=== PATIENT | male | born 1965 | race Caucasian/White ===

== ENCOUNTER 2020-11-28 17:15 | Emergency (ER) | payer MEDICAID ==
[~2020-11-28] VITALS: Ht 177.8 cm; Wt 109.1 kg
[2020-11-28] MEDS ORDERED: diazepam inj 5 MG/ML inj. IV ONE (18:50)
[2020-11-28] MEDS ORDERED: FURO-150 PO (18:56)
[2020-11-28] MEDS ORDERED: NICO1PAT41 TOP (18:56)
[2020-11-28] MEDS ORDERED: FERR-39 PO (18:56)
[2020-11-28] MEDS ORDERED: TRIA15CR62 TOP (18:56)
[2020-11-28] MEDS ORDERED: AMLO5TAB PO (18:56)
[2020-11-28] MEDS ORDERED: NYSPWD TP (18:56)
[2020-11-28] MEDS ORDERED: DICL100G15 TOP (18:56)
[2020-11-28] MEDS ORDERED: THIA50TA10 PO (18:56)
[2020-11-28] MEDS ORDERED: MULT-384 PO (18:56)
[2020-11-28] MEDS ORDERED: DOCU-148 PO (18:56)
[2020-11-28] MEDS ORDERED: ATOR10TA70 PO (18:56)
[2020-11-28] MEDS ORDERED: FOLI0.4T14 PO (18:56)
[2020-11-28] MEDS ORDERED: MUPI22OI30 TP (18:56)
[2020-11-28] MEDS ORDERED: BACI1PAC7 TP (18:56)
[2020-11-28] MEDS ORDERED: PANT-47 PO (18:56)
[2020-11-28] MEDS ORDERED: INSU100C10 SQ (18:56)
[2020-11-28] MEDS ORDERED: GABA300C PO (18:56)
[2020-11-28] MEDS ORDERED: INSU100V9 SQ (18:56)
[2020-11-28] MEDS ORDERED: METF-436 PO (18:56)
[2020-11-28] MEDS ORDERED: HYDR-3965 PO (18:56)
--- NOTE | 2020-11-29 00:28 | NUR ---
Patient in bed resting. RN called to check on transport ETA. Per dispatch not available to transport due to local 911 service. Updated they will call when they are available.
--- NOTE | 2020-11-29 03:10 | NUR ---
Patient resting in bed sleeping. No signs of distress.
--- NOTE | 2020-11-29 04:35 | NUR ---
Patient still resting in bed sleeping. Awaiting [facility]. [facility] contacted again.
--- NOTE | 2020-11-29 06:23 | NUR ---
received report on pt, waiting on [facility] to give ride back to [facility].
[2020-11-29 08:34] VITALS: BP 152/76
[2020-11-29] MEDS ORDERED: [UNRECOGNIZED DRUG - OTHER] IV ONE ×2 (11:11→11:12)
== END 2020-11-29 08:39 | disposition home or self-care (01) ==
LOC: ER 17:15
DX: M86.9 Osteomyelitis, unspecified (principal); Z79.899 Other long term (current) drug therapy
CPT/HCPCS: 71045; 73223; 87070; 96374; 99285; A9575; J3360; 73723

== ENCOUNTER 2020-12-08 23:57 | Emergency (ER) | payer MEDICAID ==
[~2020-12-08] VITALS: Ht 177.8 cm; Wt 100.0 kg
[~2020-12-08 23:57] MED LIST: AMLO5TAB PO; ATOR10TA70 PO; BACI1PAC7 TP; DICL100G15 TOP; DOCU-148 PO; FERR-39 PO; FOLI0.4T14 PO; FURO-150 PO; GABA300C PO; HYDR-3965 PO; INSU100C10 SQ; INSU100V9 SQ; METF-436 PO; MULT-384 PO; MUPI22OI30 TP; NICO1PAT41 TOP; NYSPWD TP; PANT-47 PO; THIA50TA10 PO; TRIA15CR62 TOP
[2020-12-09 00:07] VITALS: BP 149/108
[2020-12-09] MEDS ORDERED: acetaminophen 325mg tablet PO ONE (00:10)
--- NOTE | 2020-12-09 00:58 | NUR ---
Patient presents in wet blue sweat pant suit with one shoe on. Patient is drowsy and wants to sleep on [facility] [place]. Wound cleansed, dressed and sling placed. Clean blue sweat pants and t shirt placed, dry hospital socks placed. Patient's wet clothes placed in belongings bag with his one shoe. Taxi is called for patient to go to [facility]. Patient taken out to lobby via wheelchair by RN. Patient is strongly urged by RN to obtain assistance at the [facility] for long-term and any assistance they can offer him.
== END 2020-12-09 01:05 | disposition home or self-care (01) ==
LOC: ER 23:58
DX: T75.89XA Other specified effects of external causes, initial encounter (principal); M25.511 Pain in right shoulder; I12.9 Hypertensive chronic kidney disease with stage 1 through stage 4 chronic kidney disease, or unspecified chronic kidney disease; E11.22 Type 2 diabetes mellitus with diabetic chronic kidney disease; N18.9 Chronic kidney disease, unspecified; F15.90 Other stimulant use, unspecified, uncomplicated; Z86.19 Personal history of other infectious and parasitic diseases; Z98.890 Other specified postprocedural states; Z60.2 Problems related to living alone; Z59.0 Homelessness; Z79.4 Long term (current) use of insulin; Z79.899 Other long term (current) drug therapy; X31.XXXA Exposure to excessive natural cold, initial encounter; Y93.89 Activity, other specified; Y92.89 Other specified places as the place of occurrence of the external cause; Y99.8 Other external cause status
CPT/HCPCS: 29125; 99284

== ENCOUNTER 2020-12-10 08:09 | Emergency (ER) | payer MEDICAID ==
[~2020-12-10] VITALS: Ht 177.8 cm; Wt 120.0 kg
[2020-12-10 09:29] LABS: BASOPHILS # (AUTO) 0.1 X10'3 (0-0.2); BASOPHILS % (AUTO) 0.7 % (0-1); EOSINOPHILS # (AUTO) 0.3 X10'3 (0-0.9); EOSINOPHILS % (AUTO) 3.1 % (0-6); HEMATOCRIT 29.8 % (42.0-52.0); HEMOGLOBIN 9.6 g/dl (14.0-17.9); LYMPHOCYTES # (AUTO) 0.8 X10'3 (1.1-4.8); LYMPHOCYTES % (AUTO) 8.3 % (21-51); MEAN CORPUSCULAR HGB CONC 32.3 g/dL (33.0-36.5); MEAN CORPUSCULAR VOLUME 86.5 FL (78-98); MEAN PLATELET VOLUME 8.2 FL (7.4-10.4); MONOCYTES # (AUTO) 0.8 X10'3 (0-0.9); NEUTROPHILS # (AUTO) 7.2 X10'3 (1.8-7.7); NEUTROPHILS % (AUTO) 78.9 % (42-75); PLATELET COUNT 259 X10'3 (140-440); RED BLOOD COUNT 3.44 X10'6 (4.70-6.10); RED CELL DISTRIBUTION WIDTH 15.6 % (11.5-14.5); WHITE BLOOD COUNT 9.1 X10'3 (4.5-11.0)
[2020-12-10 09:35] LABS: ALANINE AMINOTRANSFERASE 53 U/L (12-78); ALBUMIN 1.4 G/DL (3.4-5.0); ALBUMIN/GLOBULIN RATIO 0.3 (1.1-1.5); ALKALINE PHOSPHATASE 108 IU/L (46-116); ANION GAP 6 (8-16); ASPARTATE AMINO TRANSFERASE 52 U/L (10-37); BILIRUBIN,TOTAL 0.2 MG/DL (0.1-1.0); BLOOD UREA NITROGEN 28 MG/DL (7-18); BUN/CREATININE RATIO 11.1 (5.4-32.0); C-REACTIVE PROTEIN 8.75 MG/DL (0.0-0.5); CHLORIDE 103 MMOL/L (99-107); CREATININE 2.53 MG/DL (0.60-1.10); GLUCOSE 373 MG/DL (70-104); POTASSIUM 4.2 MMOL/L (3.5-5.1); SODIUM 133 MMOL/L (135-145); TOTAL CARBON DIOXIDE 23.6 MMOL/L (24-32); TOTAL PROTEIN 5.8 G/DL (6.4-8.2); eGFR 27 ML/MIN
[2020-12-10 18:55] VITALS: BP 143/83
--- NOTE | 2020-12-10 18:59 | NUR ---
[facility] HERE TO TAKE PATIENT TO [place]. REPORT GIVEN TO MANAGER SHIPPING NAJMA.
== END 2020-12-10 19:28 | disposition short-term general hospital (02) ==
LOC: ER 08:10
DX: M86.8X1 Other osteomyelitis, shoulder (principal); R22.43 Localized swelling, mass and lump, lower limb, bilateral; I12.0 Hypertensive chronic kidney disease with stage 5 chronic kidney disease or end stage renal disease; N18.9 Chronic kidney disease, unspecified; E11.22 Type 2 diabetes mellitus with diabetic chronic kidney disease; F15.90 Other stimulant use, unspecified, uncomplicated; Z98.890 Other specified postprocedural states; Z59.0 Homelessness; Z79.4 Long term (current) use of insulin; Z79.899 Other long term (current) drug therapy
CPT/HCPCS: 36415; 73030; 80053; 85025; 85651; 86140; 99285